=== PATIENT | female | born 1995 | race Two or more races ===

== ENCOUNTER 2018-03-23 16:12 | Emergency (ER) | payer MEDICAID ==
[~2018-03-23] VITALS: Ht 162.6 cm; Wt 83.5 kg
[2018-03-23 16:41] VITALS: BP 121/73
[2018-03-23] MEDS ORDERED: KETOROLAC TROMETH 60MG/2ML VIAL IM ONE (17:30)
[2018-03-23] MEDS ORDERED: METHOCARBAMOL 500 MG TAB PO ONE ×2 (17:30→17:45)
[2018-03-23] MEDS ORDERED: cefTRIAXone SOD 1,000 MG VL IM ONE (17:45)
== END 2018-03-23 18:09 | disposition home or self-care (01) ==
LOC: ER 16:16
DX: S13.4XXA Sprain of ligaments of cervical spine, initial encounter (principal); G43.909 Migraine, unspecified, not intractable, without status migrainosus; Z88.6 Allergy status to analgesic agent; Z88.0 Allergy status to penicillin; V49.49XA Driver injured in collision with other motor vehicles in traffic accident, initial encounter; Y93.89 Activity, other specified; Y99.8 Other external cause status; Y92.488 Other paved roadways as the place of occurrence of the external cause
CPT/HCPCS: 72040; 96372; 99284; J0696